=== PATIENT | female | born 1970 | race African-American/Black ===

== ENCOUNTER 2019-02-12 12:15 | Emergency (ER) | payer OTHER ==
[~2019-02-12] VITALS: Ht 170.2 cm; Wt 56.7 kg
[~2019-02-12 12:15] MED LIST: AZITHROMYCIN 2250 MG PO; FLAGYL500 MG PO; IBUPROFEN 600600 M1 PO; NOHOMEMEDICATIONS; PROMETHAZINE-C120 ML PO; ZPAK PO
[2019-02-12 13:17] LABS: ABSOLUTE NEUTROPHILS 4.6 thou/uL (1.4-8.2); BASOPHILS 0.6 % (0.0-2.0); HEMATOCRIT 42.2 % (37.0-47.0); HEMOGLOBIN 15.1 gm/dL (12.0-15.0); LYMPHOCYTES 39.4 % (24.0-44.0); MCH 35.5 pg (26.0-34.0); MCHC 35.7 g/dL (28.0-37.0); MCV 99.4 fL (80.0-100.0); MONOCYTES 7.1 % (1.0-8.0); POLYS 51.9 % (36.0-66.0); RBC 4.25 mil/uL (4.20-5.00); RDW 12.4 % (10.5-14.5); WBC 8.9 thou/uL (4.0-11.0)
[2019-02-12 13:21] LABS: ANION GAP 13 mmol/L (7-16); BUN 13 mg/dL (7-18); CALCIUM 9.7 mg/dL (8.5-10.1); CHLORIDE 101 mmol/L (98-107); CO2 23 mmol/L (21-32); GLUCOSE 108 mg/dL (74-106); POTASSIUM 3.2 mmol/L (3.5-5.1); SODIUM 137 mmol/L (136-145)
[2019-02-12 13:30] LABS: ALBUMIN 4.5 g/dL (3.4-5.0); SGOT 22 U/L (15-37); SGPT 24 U/L (30-65); TOTAL BILIRUBIN 0.4 mg/dL (<0.1-1.0); TOTAL PROTEIN 8.3 g/dL (6.4-8.2); TROPONIN-I <0.06 ng/mL (<0.06)
[2019-02-12 14:05] LABS: PLATELET COUNT 139 thou/uL (150-400); PLATELET ESTIMATE NORMAL
[2019-02-12] MEDS ORDERED: ATIVAN0.5 MG PO (15:01)
[2019-02-12 15:11] VITALS: BP 134/71
--- NOTE | 2019-02-13 11:43 | EKG ---
[address] [address] ELECTROCARDIOGRAM REPORT Name: SOFI FAUSTIN Room #: [facility]#: [id number] Admission: 02/12/19 Attend Phys: Discharge: 02/12/19 Date of : 74 Report #: [id number] THIS REPORT FOR: //name// [facility] ED Test Date: 2019-02-12 Test Time: 12:19:29 Pat Name: SOFI FAUSTIN Department: Room: Gender: F Marketing Director: ZORAIDA : 1970 Requested By: Manuel Minor Order Number: [id number] MD: Chris Newberry Measurements Intervals [place] Rate: 100 P: 83 DE: 158 QRS: 28 QRSD: 99 T: -1 QT: 375 QTc: 484 Interpretive Statements Sinus tachycardia Probable left atrial enlargement Minimal ST depression, inferior leads Baseline wander in lead(s) II,aVR Compared to ECG 10/04/2014 20:33:29 ST (T wave) deviation now present Sinus rhythm no longer present Electronically Signed On 02-13-2019 11:42:51 CDT by Chris Newberry [email or web address] <ELECTRONICALLY SIGNED> By: Chris Newberry MD 02/13/19 1142 1219 1219 Chris Newberry MD /EPI
== END 2019-02-12 15:11 | disposition home or self-care (01) ==
LOC: ER 12:15
PROVIDERS: Physician Assistant
DX: F41.9 Anxiety disorder, unspecified (principal); R07.9 Chest pain, unspecified; Z98.890 Other specified postprocedural states; Z98.51 Tubal ligation status; Z87.891 Personal history of nicotine dependence

== ENCOUNTER 2020-06-17 07:57 | Emergency (ER) | payer OTHER ==
[~2020-06-17] VITALS: Ht 170.2 cm; Wt 56.7 kg
[~2020-06-17 07:57] MED LIST changes: +ATIVAN0.5 MG PO
[2020-06-17] MEDS ORDERED: AMLODIPINE BESY10 MG PO (08:05)
[2020-06-17] MEDS ORDERED: SERTRALINE HCL25 MG PO (08:06)
[2020-06-17] MEDS ORDERED: TESSALON PERLE100 MG PO (09:33)
[2020-06-17 09:50] VITALS: BP 138/95
== END 2020-06-17 09:52 | disposition home or self-care (01) ==
LOC: ER 07:57
DX: J06.9 Acute upper respiratory infection, unspecified (principal); R42 Dizziness and giddiness; M54.9 Dorsalgia, unspecified; Z20.828 Contact with and (suspected) exposure to other viral communicable diseases; Z98.890 Other specified postprocedural states; Z98.51 Tubal ligation status; Z79.899 Other long term (current) drug therapy; Z88.8 Allergy status to other drugs, medicaments and biological substances; Z87.891 Personal history of nicotine dependence